=== PATIENT | female | born 1970 | race Caucasian/White ===

== ENCOUNTER 2022-05-20 17:03 | Emergency (ER) | payer MEDICAID ==
[~2022-05-20] VITALS: Ht 157.5 cm; Wt 79.4 kg
[~2022-05-20 17:03] MED LIST: ASPI81TA10 PO; LISI2.5T47 PO; METO25TA93 PO; SIMV-8 PO
[2022-05-20 17:10] VITALS: BP 141/83
[2022-05-20] MEDS ORDERED: TETANUS-DIPTH-ACEL PERTUSSIS 0.5ML SYR Tdap IM ONE (20:00)
[2022-05-20] MEDS ORDERED: DOXY-346 PO (20:22)
[2022-05-20] MEDS ORDERED: CLIN300C8 PO (20:22)
== END 2022-05-20 20:29 | disposition home or self-care (01) ==
LOC: EDUNIT# 17:03 → ER 17:03 → EDBD 17:03 → ER 20:29
DX: S41.111A Laceration without foreign body of right upper arm, initial encounter (principal); S41.151A Open bite of right upper arm, initial encounter; I10 Essential (primary) hypertension; I25.2 Old myocardial infarction; I25.10 Atherosclerotic heart disease of native coronary artery without angina pectoris; E78.5 Hyperlipidemia, unspecified; F17.210 Nicotine dependence, cigarettes, uncomplicated; Z79.82 Long term (current) use of aspirin; Z79.2 Long term (current) use of antibiotics; Z79.899 Other long term (current) drug therapy; Z88.0 Allergy status to penicillin; W54.0XXA Bitten by dog, initial encounter; Y93.89 Activity, other specified; Y92.89 Other specified places as the place of occurrence of the external cause; Y99.8 Other external cause status
CPT/HCPCS: 73090; 73110; 90471; 90715

== ENCOUNTER 2022-07-28 13:40 | Emergency (ER) | payer MEDICAID ==
[~2022-07-28] VITALS: Ht 157.5 cm; Wt 84.2 kg
[~2022-07-28 13:40] MED LIST changes: +CLIN300C8 PO; +DOXY-346 PO
[2022-07-28] MEDS ORDERED: SIMV-8 PO ×2 (15:19→15:21)
[2022-07-28] MEDS ORDERED: MET25T PO (15:19)
[2022-07-28] MEDS ORDERED: CLOP75TA28 PO ×2 (15:19→15:21)
[2022-07-28] MEDS ORDERED: LISI20TA28 PO (15:19)
[2022-07-28 15:34] VITALS: BP 146/84
== END 2022-07-28 15:32 | disposition home or self-care (01) ==
LOC: ER 13:48
DX: I10 Essential (primary) hypertension (principal); E78.5 Hyperlipidemia, unspecified; I25.2 Old myocardial infarction; F17.210 Nicotine dependence, cigarettes, uncomplicated; Z76.0 Encounter for issue of repeat prescription; Z98.51 Tubal ligation status

== ENCOUNTER 2022-09-23 15:52 | Emergency (ER) | payer MEDICAID ==
[~2022-09-23] VITALS: Ht 160 cm; Wt 85.0 kg
[~2022-09-23 15:52] MED LIST changes: +CLOP75TA28 PO; +LISI20TA28 PO; +MET25T PO
[2022-09-23 17:35] VITALS: BP 117/81
[2022-09-23] MEDS ORDERED: MET25T PO (19:39)
[2022-09-23] MEDS ORDERED: LISI20TA28 PO (19:39)
[2022-09-23] MEDS ORDERED: SIMV-8 PO (19:39)
== END 2022-09-23 19:44 | disposition home or self-care (01) ==
LOC: ER 15:52
DX: I10 Essential (primary) hypertension (principal); E78.5 Hyperlipidemia, unspecified; I25.2 Old myocardial infarction; F17.210 Nicotine dependence, cigarettes, uncomplicated; Z98.51 Tubal ligation status; Z76.0 Encounter for issue of repeat prescription